=== PATIENT | female | born 1985 ===

== ENCOUNTER 2024-04-24 05:39 | Day surgery (SDC) | payer OTHER ==
[2024-04-23 10:30] LABS: HEMATOCRIT 35.6 % (36.0-45.00); HEMOGLOBIN 11.7 g/dL (12.0-15.00); MEAN CELL VOLUME 73.8 fL (80.00-100.00); MEAN CORPUSCULAR HEMOGLOBIN 24.3 pg (27.00-32.0); PLATELET COUNT 139 K/uL (150-450); RED BLOOD COUNT 4.82 M/uL (4.00-6.00); RED CELL DISTRIBUTION WIDTH 15.7 % (11.5-14.5)
[2024-04-23 10:33] LABS: URINE APPEARANCE Cloudy; URINE BILIRRUBIN Negative (NEGATIVE); URINE BLOOD Negative; URINE COLOR Yellow; URINE GLUCOSE Negative (NEGATIVE); URINE KETONE Negative (NEGATIVE); URINE LEUKOCYTE Negative; URINE NITRATE Negative; URINE PROTEIN Negative (NEGATIVE); URINE UROBILINOGEN 0.2 E.U./dl
[2024-04-23 10:34] LABS: PARTIAL THROMBOPLASTIN TIME 28.5 SECONDS (22.0-34.0); PROTHROMBIN TIME 10.5 SECONDS (9.0-11.5)
[2024-04-23 10:38] LABS: URINE BACTERIA 1801.7 uL (0.0-1933); URINE CAST 1.83 uL (0.0-1.40); URINE EPITHELIAL CELLS 55.3 uL (0.0-38.8); URINE RBC 16.3 uL (0.0-20.8); URINE WBC 32.9 uL (0.0-23.2)
[2024-04-23 11:07] LABS: CALCIUM 9.2 mg/dL (8.5-10.1); CREATININE SERUM 0.66 mg/dL (0.55-1.02); GFR 99.7; POTASSIUM 4.05 mEq/L (3.5-5.1)
[~2024-04-24] VITALS: Ht 172.7 cm; Wt 95.3 kg
[2024-04-24] MEDS ORDERED: CLINDAMYCIN PHOSPHATE 150 MG/ML (900mg) ONE (06:57)
[2024-04-24] MEDS ORDERED: GENTAMICIN SULFATE 40 MG/ML VIAL ONE (07:44)
[2024-04-24] MEDS ORDERED: POVIDONE-IODINE SCRUB 118 ML BOTT TOP ONE (07:44)
[2024-04-24] MEDS ORDERED: POVIDONE-IODINE 118 ML BOTT TOP ONE ×2 (07:44→08:30)
[2024-04-24] MEDS ORDERED: CEFAZOLIN SODIUM 1,000 MG VIAL ONE (07:44)
[2024-04-24] MEDS ORDERED: SUGAMMADEX SODIUM 200 MG/2 ML VIAL IV ONE (09:23)
[2024-04-24] MEDS ORDERED: MORPHINE SULFATE 4 MG/ML VIAL IV PRN (10:15)
[2024-04-24] MEDS ORDERED: ONDANSETRON HCL 2 MG/ML VIAL IV PRN (10:15)
== END 2024-04-24 12:00 | disposition home or self-care (01) ==
LOC: CIR.AMB 05:39
PROVIDERS: ATTEND Plastic Surgery
DX: C50.811 Malignant neoplasm of overlapping sites of right female breast (principal); Z90.13 Acquired absence of bilateral breasts and nipples; Z80.3 Family history of malignant neoplasm of breast; H52.209 Unspecified astigmatism, unspecified eye